=== PATIENT | male | born 1985 | race Caucasian/White ===

== ENCOUNTER 2019-02-05 01:06 | Emergency (ER) | payer OTHER ==
[~2019-02-05] VITALS: Ht 175.3 cm; Wt 108.9 kg
[~2019-02-05 01:06] MED LIST: ALBU90OI INH; ALBU90OI6 INH; AZIT250 PO; BENZ100A PO; CODGUAEL PO; DOXY100T53 PO; MINOIL PR; ONDA8ODT MM
== END 2019-02-05 02:34 | disposition home or self-care (01) ==
LOC: ER 01:06
DX: S61.032A Puncture wound without foreign body of left thumb without damage to nail, initial encounter (principal); W22.8XXA Striking against or struck by other objects, initial encounter; Z87.891 Personal history of nicotine dependence
CPT/HCPCS: 90471; 90714; 99283-25

== ENCOUNTER 2025-03-03 12:14 | Emergency (ER) | payer OTHER ==
[~2025-03-03] VITALS: Ht 182.9 cm; Wt 74.8 kg
[2025-03-03 13:20] VITALS: BP 108/70
[2025-03-03] MEDS ORDERED: FLUTICASONE PRO16 GM (13:22)
[2025-03-03] MEDS ORDERED: OMEPRAZOLE MAGN20 M1 PO (13:22)
[2025-03-03] MEDS ORDERED: LURASIDONE HCL20 MG PO (13:22)
[2025-03-03] MEDS ORDERED: Fluorescein Sod 1MG Opth Strips LEFTEYE ONE (13:25)
[2025-03-03] MEDS ORDERED: Tetracaine HCl/Pf 0.5% Opth Soln 4 ml LEFTEYE ONE (14:35)
== END 2025-03-03 15:23 | disposition home or self-care (01) ==
LOC: ER 12:14
DX: H10.9 Unspecified conjunctivitis (principal); Z87.891 Personal history of nicotine dependence
CPT/HCPCS: 99283; A9270